=== PATIENT | female | born 1950 | race Caucasian/White ===

== ENCOUNTER 2018-01-21 11:12 | Emergency (ER) | payer MEDICARE, OTHER ==
[~2018-01-21] VITALS: Ht 162.6 cm; Wt 60.3 kg
--- NOTE | 2018-01-21 11:14 | NUR ---
PT [facility]INOZA BLS TO ER BED 05
[2018-01-21 11:25] VITALS: BP 169/133
--- NOTE | 2018-01-21 11:25 | NUR ---
[place] [facility] [place]AL[place] A[place] PAIN & N/V X THIS AM. PT REPORTED LEFT LEG FRACTURE 2 MONTHS AGO.[id number] LONG LEG CAST TO LEF LEG.08/08 AT THIS TIME; VSS; PATIENT POSITIONED FOR COMFORT; LEFT LEG ELEVATED; BEDRAILS UP X2; BED DOWN. ER MADE AWARE OF PT STATUS. Addendum: 01/21/18 at 1506 by [facility]ERSON[facility] AREA
[2018-01-21] MEDS ORDERED: ONDANSETRON 4 MG/2 ML VIAL IVP ONE (11:30)
[2018-01-21] MEDS ORDERED: NACL 0.9% 1,000 ML IV ONE (11:30)
--- NOTE | 2018-01-21 11:40 | NUR ---
INSERTED IV CATH X 3 TIMES;PT HARD STICK. NOTIFIED DIANN JOYCE.
[2018-01-21 13:38] LABS: BASOPHILS % (AUTO) 0.3 % (0.0-2.0); HEMATOCRIT 38.2 % (36-48); HEMOGLOBIN 12.6 g/dL (12.0-16.0); LYMPHOCYTES # (AUTO) 0.3 K/uL (2.5-16.5); LYMPHOCYTES % (AUTO) 3.3 % (20.5-51.1); MEAN CORPUSCULAR HEMOGLOBIN 28 pg (27-31); MEAN CORPUSCULAR HGB CONC 33 g/dL (33-37); MEAN CORPUSCULAR VOLUME 84.4 fL (80-94); MONOCYTES # (AUTO) 0.2 K/uL (0.8-1.0); MONOCYTES % (AUTO) 2.2 % (1.7-9.3); NEUTROPHILS # (AUTO) 8.2 K/uL (1.8-7.7); NEUTROPHILS % (AUTO) 94.2 % (42.2-75.2); PLATELET COUNT (AUTO) 336 K/uL (140-450); RED BLOOD CELL COUNT(AUTO) 4.52 MIL/uL (4.20-5.40); WHITE BLOOD COUNT (AUTO) 8.7 K/uL (4.8-10.8)
[2018-01-21 13:52] LABS: ALBUMIN 3.1 g/dL (3.4-5.0); ANION GAP 16.4 (8-16); ASPARTATE AMINOTRANSFERASE 19 U/L (15-37); CARBON DIOXIDE 25.2 mmol/L (21-32); CHLORIDE 103 mmol/L (98-107); CREATININE 0.8 mg/dL (0.6-1.3); GFR ARICAN-AMERICAN 92 mL/min (>90); GLUCOSE 146 mg/dL (74-106); POTASSIUM 3.6 mmol/L (3.5-5.1); SODIUM SERUM 141 mmol/L (136-145); TOTAL BILIRUBIN 0.3 mg/dL (0.0-1.0); UREA NITROGEN, BLOOD 20 mg/dL (7-18)
[2018-01-21 14:03] LABS: ACETAMINOPHEN < 0.5 ug/ml (10-30); SALICYLATE < 2.8 mg/dL (2.8-20.0)
--- NOTE | 2018-01-21 14:20 | NUR ---
DIANN JOYCE, ELOY RN TRIED TO INSERT IV CATH BUT CAN'T GET IT. NOTIFIED DR KHAN. PT DENIES N/V AT THIS TIME.
[2018-01-21] MEDS ORDERED: cloNIDine 0.1 MG TAB PO ONE (14:25)
--- NOTE | 2018-01-21 14:25 | NUR ---
PT HAD LARGE AMOUNT BM AT THIS TIME. Addendum: 01/21/18 at 1430 by [email or web address] BP 198/114. NOTIFIED DR KHAN. SARAHY .1 MG PO ORDERED.
[2018-01-21] MEDS ORDERED: ACETAMINOPHEN EXTRA STRENGTH 500 MG TAB PO ONE (14:35)
--- NOTE | 2018-01-21 14:59 | NUR ---
DENIES N/V; ABDOMINAL PAIN & PADILLA 06/08; BP 192/106
[2018-01-21 15:08] LABS: APPEARANCE,URINE HAZY (CLEAR); BILIRUBIN,URINE NEGATIVE (NEGATIVE); BLOOD, URINE TRACE-I (NEGATIVE); COLOR,URINE YELLOW (YELLOW); LEUKOCYTE ESTERASE ,URINE NEGATIVE (NEGATIVE); NITRITE, URINE POSITIVE (NEGATIVE); PH,URINE 7.5 (5.0-9.0); UGLUCOSE NEGATIVE (NEGATIVE)
[2018-01-21 15:16] LABS: RBC,URINE NONE SEEN /HPF (0-5); WBC,URINE 0-5 (RARE) /HPF (0-5)
[2018-01-21] MEDS ORDERED: NITROFURANTOIN 100 MG CAP PO SCH (15:20)
[2018-01-21 15:35] LABS: BARBITURATE, URINE NEG. ng/ml (NEG <=200); BENZODIAZEPINE, URINE NEG. ng/mL (NEG <=200); CANNABINOID, URINE POS. ng/mL (NEG <=50); COCAINE, URINE NEG. ng/mL (NEG <=300); OPIATE, URINE NEG. ng/mL (NEG <=2000); PHENCYCLIDINE SCREEN,URINE NEG. ng/mL (NEG <=25)
--- NOTE | 2018-01-21 15:53 | NUR ---
denies pain, bp 152/81at this time.
--- NOTE | 2018-01-21 16:50 | NUR ---
SPOKE TO [facility]; INFORMED PT WILL TRANSFER BACK TO FACILITY AROUND 5.30 PM BY TONI.
--- NOTE | 2018-01-21 17:38 | NUR ---
TRANSPORT ARRIVED AT THIS TIME
[2018-01-21 17:41] VITALS: BP 152/81
--- NOTE | 2018-01-21 17:42 | NUR ---
Patient discharged with .BP 150.81, DENIES PADILLA AT THIS TIME Written and verbal after care instructions given and explained. Patient alert, oriented and verbalized understanding of instructions. Ambulance Transport with to [facility]. All questions addressed prior to discharge. ID band removed. Patient advised to follow up with PMD. Rx of MACROBID given. Patient educated on indication of medication including possible reaction and side effects. Opportunity to ask questions provided and answered.
== END 2018-01-21 17:42 | disposition home or self-care (01) ==
LOC: MED 11:12
DX: N39.0 Urinary tract infection, site not specified (principal); F12.90 Cannabis use, unspecified, uncomplicated; E11.9 Type 2 diabetes mellitus without complications; I10 Essential (primary) hypertension; F32.9 Major depressive disorder, single episode, unspecified; F41.9 Anxiety disorder, unspecified; M79.7 Fibromyalgia
CPT/HCPCS: 36415; 80053; 80305; 81001; 81025; 85025; 87086; 87186; 99285; C1758; G0480; G0482; J2405; 99284